=== PATIENT | female | born 1960 | race Caucasian/White ===

== ENCOUNTER 2016-07-12 06:08 | Inpatient (IN) | payer BC ==
[~2016-07-12 06:08] MED LIST: Buffered Lidocaine 1% SYRIN* 3 ML/SYR SYRINGE INTRADERM ONE; Dexamethasone IV* 4 MG/ML 1 ML (4 MG) ONE; Heparin VIAL(*) 5000 UNITS/ML VIAL (FIVE THOUSAND) ONE; Ondansetron INJ* 2 MG/ML VIAL ONE
[2016-07-12] MEDS ORDERED: Ketorolac INJ* 30 MG/ML 1 ML VIAL ONE (06:09)
[2016-07-12] MEDS ORDERED: ceFAZolin 2 GM PREMIX(*) 2 GM/50 ML BAG IVPB ONE ×2 (06:09→12:42)
[2016-07-12] MEDS ORDERED: Scopolamine 1.5 mg* PATCH ONE (06:09)
[2016-07-12] MEDS ORDERED: Bacitracin IV* 50,000 UNITS INJ ONE ×3 (07:27→10:22)
[2016-07-12] MEDS ORDERED: Methylene Blue 1%* 10 ML VIAL ONE (07:27)
[2016-07-12] MEDS ORDERED: Midazolam* 1 MG/ML 5 ML VIAL (5 MG) ONE (07:27)
[2016-07-12] MEDS ORDERED: Bupivacaine 0.5% W/EPI SDV* 30 ML VIAL ONE (07:27)
[2016-07-12] MEDS ORDERED: fentaNYL* 50 MCG/ML 2 ML VIAL (100 MCG VIAL) ONE (07:27)
[2016-07-12] MEDS ORDERED: Gentamicin ADULT (*) 40 MG/ML VIAL ONE ×3 (07:27→10:21)
[2016-07-12] MEDS ORDERED: ceFOXitin(*) 1 GM VIAL ONE (07:27)
[2016-07-12] MEDS ORDERED: Rocuronium* 10 MG/ML VIAL ONE (08:06)
[2016-07-12] MEDS ORDERED: ceFAZolin VIAL(*) 1 GM VIAL ONE ×2 (08:49→10:22)
[2016-07-12] MEDS ORDERED: HYDROmorphone* 1 MG/ML 1 ML SYR ONE (08:52)
[2016-07-12] MEDS ORDERED: Propofol* 10 MG/ML 20 ML BTL IV PUSH ONE (08:54)
[2016-07-12] MEDS ORDERED: Famotidine IV* 10 MG/ML 2 ML (20 mg) ONE (08:54)
[2016-07-12] MEDS ORDERED: Dexmedetomidine* 200 MCG/2 ML 2 ML VIAL ONE (08:54)
[2016-07-12] MEDS ORDERED: Lidocaine 2% PF* 5 ML VIAL ONE (08:54)
[2016-07-12] MEDS ORDERED: Hetastarch in NS* 500 ML IV ONE (09:29)
[2016-07-12] MEDS ORDERED: Acetaminophen TAB* 325 MG PO PRN ×2 (10:01→15:07)
[2016-07-12] MEDS ORDERED: Ondansetron INJ* 2 MG/ML VIAL IV PRN (10:01)
[2016-07-12] MEDS ORDERED: fentaNYL* 50 MCG/ML 2 ML VIAL (100 MCG VIAL) IV PRN (10:01)
[2016-07-12] MEDS ORDERED: HYDROmorphone* 1 MG/ML 1 ML SYR IV PRN (10:01)
[2016-07-12] MEDS ORDERED: HYDROcodone/ACETAMIN 5-325 MG* 1 TAB PO PRN (10:01)
[2016-07-12] MEDS ORDERED: DiMENhydriNATE IV* 50 MG/ML VIAL IV PUSH PRN (10:01)
[2016-07-12] MEDS ORDERED: PROCHLORPERAZINE INJ 5 MG/ML 2 ML VIAL IV PRN (10:01)
[2016-07-12] MEDS ORDERED: Desflurane* 240 ML INH ONE (12:38)
[2016-07-12] MEDS ORDERED: diPHENhydraMINE IV* 50 MG/ML 1 ml VIAL (BENADRYL) IV PRN ×2 (15:07)
[2016-07-12] MEDS ORDERED: diPHENhydraMINE PO* 25 MG PO PRN ×2 (15:08→15:09)
[2016-07-12] MEDS ORDERED: Magnesium Hydroxide LIQ* 30 ML UDC PO PRN (15:10)
[2016-07-12] MEDS ORDERED: Al Hydrox/Mg Hydrox/Simet LIQ* 30 ML UDC PO PRN (15:10)
[2016-07-12] MEDS: NS 0.9% 1000 ML* 1,000 ML IV SCH (15:14)
[2016-07-12] MEDS: HYDROcodone/ACETAMIN 5-325 MG* 1 TAB PO PRN (15:20)
[2016-07-12] MEDS: Heparin VIAL(*) 5000 UNITS/ML VIAL (FIVE THOUSAND) SUBCUT SCH ×2 (15:21→22:18)
[2016-07-12] MEDS: Acetaminophen TAB* 325 MG PO SCH ×2 (16:48→22:07)
[2016-07-12] MEDS: HYDROmorphone* 1 MG/ML 1 ML SYR IV PRN ×3 (16:51→22:12)
[2016-07-12] MEDS: Ondansetron INJ* 2 MG/ML VIAL IV PRN ×2 (17:52→22:11)
[2016-07-12] MEDS: ceFAZolin 2 GM PREMIX(*) 2 GM/50 ML BAG IVPB SCH (18:36)
[2016-07-12] MEDS: Omeprazole CAP* 20 MG PO SCH (22:06)
[2016-07-12] MEDS: Atorvastatin* 10 MG TAB PO SCH (22:08)
[2016-07-12] MEDS: ALPRAZolam TAB* 0.25 MG PO SCH (22:08)
[2016-07-12] MEDS: Potassium Chlor TAB* 20 MEQ TAB.ER PO SCH (22:08)
[2016-07-13] MEDS: ceFAZolin 2 GM PREMIX(*) 2 GM/50 ML BAG IVPB SCH (00:14)
--- NOTE | 2016-07-13 01:11 | OP ---
DATE OF OPERATION: 07/12/16 - ROOM #343 DATE OF : 64 SURGEON: Jean Sherwood MD BLOCK[employer] FORMS: Jenniffer Berg NP ANESTHESIOLOGIST: Dr. Dey. ANESTHESIA: General anesthetic. PRE-OP DIAGNOSIS: Right breast cancer. POST-OP DIAGNOSIS: Right breast cancer. OPERATIVE PROCEDURE: Right mastectomy with axillary lymph node dissection and left prophylactic mastectomy and removal of PowerPort. DESCRIPTION OF PROCEDURE: The patient was supine on the operative table. After adequate general anesthetic, compression stockings, Jamar Hugger warmer, and intravenous antibiotics, both chests were prepped with antiseptic, draped in a sterile fashion. Dr. Perez had previously marked the operative incisions. These were accomplished without difficulty. The right side was addressed first and elliptical incision was created. Inferior and superior flaps were created. The breast was removed in the usual fashion in the subfascial plane and the axillary tail was marked with a suture and this was then sent in formalin for pathologic evaluation. Axillary dissection was carried out in the usual fashion. Long thoracic and thoracodorsal nerves were identified and kept out of harm's way as was the axillary vein and tissue was sent in formalin for pathologic evaluation. Clips or cautery were used as appropriate for hemostasis. After adequate hemostasis, everything was irrigated , hemostasis was again confirmed. Moist gauze was placed and Dr. Perez will take over for the closure and will dictate that part of the procedure. Attention was then turned to the left side where again an elliptical incision was created upon Dr. Perez's luna. Inferior and superior flaps were created without difficulty, and the breast removed off the pectoralis fascia and marked with a suture laterally and sent in formalin for pathologic evaluation. The port was also removed from underneath. The site was hemostatic. Irrigation was carried out and was packed with saline gauze, and again Dr. Perez will take over this part of the case and accomplish the reconstruction and closure. Estimated blood loss from my part of the procedure was less than 100 mL. The specimens were as enumerated above. CC: Dr. Jean Sherwood; Dr. Racheal Monroe; Dr. Travon Toure; Dr. Emely Garnett; Dr. Jean Perez* [id number]/[facility] #: [id number] [facility]
[2016-07-13] MEDS: Acetaminophen TAB* 325 MG PO SCH ×4 (04:07→21:43)
[2016-07-13] MEDS: HYDROcodone/ACETAMIN 5-325 MG* 1 TAB PO PRN ×5 (04:08→21:42)
[2016-07-13] MEDS: Heparin VIAL(*) 5000 UNITS/ML VIAL (FIVE THOUSAND) SUBCUT SCH ×3 (05:20→21:43)
[2016-07-13] MEDS: Levothyroxine TAB* 50 MCG TAB PO SCH (05:20)
[2016-07-13] MEDS: NS 0.9% 1000 ML* 1,000 ML IV SCH (05:23)
[2016-07-13] MEDS: HYDROmorphone* 1 MG/ML 1 ML SYR IV PRN (05:33)
[2016-07-13] MEDS: Ondansetron INJ* 2 MG/ML VIAL IV PRN (05:34)
[2016-07-13] MEDS: Cyanocobalamin TAB* 500 MCG PO SCH (08:38)
[2016-07-13] MEDS: Lisinopril TAB* 5 MG PO SCH (08:38)
[2016-07-13] MEDS: Cholecalciferol TAB* 1000 UNITS PO SCH (08:38)
[2016-07-13] MEDS: ALPRAZolam TAB* 0.25 MG PO SCH ×2 (08:38→21:41)
[2016-07-13] MEDS: Ascorbic Acid TAB* 500 MG PO SCH (08:39)
[2016-07-13] MEDS: Hydrochlorothiazide TAB* 25 MG PO SCH (08:39)
[2016-07-13] MEDS: Metoprolol Tartrate TAB* 25 MG PO SCH (08:39)
[2016-07-13] MEDS: Ezetimibe TAB* 10 MG PO SCH (08:39)
[2016-07-13] MEDS: Multivitamins/Minerals TAB PO SCH (08:40)
[2016-07-13] MEDS: Potassium Chlor TAB* 20 MEQ TAB.ER PO SCH ×2 (08:41→21:39)
[2016-07-13] MEDS: IRON PO SCH (08:42)
[2016-07-13] MEDS ORDERED: Ibuprofen TAB* 600 MG PO PRN (15:32)
[2016-07-13] MEDS: Omeprazole CAP* 20 MG PO SCH (21:39)
[2016-07-13] MEDS: Atorvastatin* 10 MG TAB PO SCH (21:40)
[2016-07-14] MEDS: Acetaminophen TAB* 325 MG PO SCH ×2 (04:00→08:53)
[2016-07-14] MEDS: HYDROcodone/ACETAMIN 5-325 MG* 1 TAB PO PRN ×2 (04:02→08:47)
[2016-07-14] MEDS: Levothyroxine TAB* 50 MCG TAB PO SCH (06:05)
[2016-07-14] MEDS: Heparin VIAL(*) 5000 UNITS/ML VIAL (FIVE THOUSAND) SUBCUT SCH (06:05)
[2016-07-14 07:48] VITALS: BP 126/73
[2016-07-14] MEDS: Hydrochlorothiazide TAB* 25 MG PO SCH (08:46)
[2016-07-14] MEDS: Cyanocobalamin TAB* 500 MCG PO SCH (08:46)
[2016-07-14] MEDS: Ascorbic Acid TAB* 500 MG PO SCH (08:46)
[2016-07-14] MEDS: Lisinopril TAB* 5 MG PO SCH (08:46)
[2016-07-14] MEDS: Ezetimibe TAB* 10 MG PO SCH (08:47)
[2016-07-14] MEDS: Cholecalciferol TAB* 1000 UNITS PO SCH (08:47)
[2016-07-14] MEDS: Potassium Chlor TAB* 20 MEQ TAB.ER PO SCH (08:48)
[2016-07-14] MEDS: ALPRAZolam TAB* 0.25 MG PO SCH (08:48)
[2016-07-14] MEDS: Multivitamins/Minerals TAB PO SCH (08:48)
[2016-07-14] MEDS: Metoprolol Tartrate TAB* 25 MG PO SCH (08:48)
[2016-07-14] MEDS: IRON PO SCH (08:49)
--- NOTE | 2016-07-15 01:49 | DS ---
DISCHARGE SUMMARY: DATE OF ADMISSION: 07/12/16 DATE OF DISCHARGE: 07/14/16 PRINCIPAL DIAGNOSIS: Right breast carcinoma. PROCEDURES: Bilateral mastectomy and right axillary dissection, removal of PowerPort, and immediate reconstruction of bilateral breasts with tissue expanders and acellular dermal matrix on 07/12/16. HOSPITAL COURSE: The patient is a 56-year-old woman, who noted swelling in the right axilla around December 2015. Fine needle aspiration showed malignant ductal adenocarcinoma. Mammogram and ultrasound confirmed extensive right axillary adenopathy and mass. Right breast ultrasound-guided needle biopsy showed high- grade invasive ductal carcinoma. She underwent neoadjuvant chemotherapy from January 2016 to April 2016 with good response. She was admitted to the hospital and taken to the operating room on 07/12/16, where she underwent bilateral mastectomy, right axillary dissection, and removal of PowerPort by Dr. Sherwood. I then proceeded with bilateral immediate breast reconstruction using tissue expanders and acellular dermal matrix slings. Surgery went well and she had an uncomplicated postoperative course in the hospital. She did have significant postoperative pain, however, and was not able to go home the next day, but by 07/14/16, her pain was under satisfactory control and was feeling much better. She was discharged home. Breasts were noted to be healing well with no signs of infection, hematoma, seroma, or delayed healing. She was discharged home with [address] in [address]. She was given instructions including activity level, wound care, medication, and followup with arrangements made for followup in my office in 2 days. CC: Dr. Perez; Dr. Sherwood; Dr. Monroe; Dr. Toure; Dr. Garentt * [id number]/[facility] #: [id number] [facility]
== END 2016-07-14 11:10 | disposition home or self-care (01) | DRG 362 ==
LOC: OR 06:08 → OBSVTOIN 14:38 → SSU 14:38
PROVIDERS: ADMIT Surgery; ATTEND Surgery
PROC: 0JPT0XZ Removal of Tunneled Vascular Access Device from Trunk Subcutaneous Tissue and Fascia, Open Approach (ICD-10-PCS; 2016-07-12)
PROC: 0HHV0NZ Insertion of Tissue Expander into Bilateral Breast, Open Approach (ICD-10-PCS; 2016-07-12)
PROC: 0HTV0ZZ Resection of Bilateral Breast, Open Approach (ICD-10-PCS; principal; 2016-07-12 07:45)
PROC: 07B50ZZ Excision of Right Axillary Lymphatic, Open Approach (ICD-10-PCS; 2016-07-12 07:45)
DX: C50.211 Malignant neoplasm of upper-inner quadrant of right female breast (principal); C77.3 Secondary and unspecified malignant neoplasm of axilla and upper limb lymph nodes; E66.9 Obesity, unspecified; F41.9 Anxiety disorder, unspecified; F32.9 Major depressive disorder, single episode, unspecified; G89.18 Other acute postprocedural pain; I10 Essential (primary) hypertension; Z40.01 Encounter for prophylactic removal of breast; Z92.21 Personal history of antineoplastic chemotherapy; Z17.1 Estrogen receptor negative status [ER-]; Z88.8 Allergy status to other drugs, medicaments and biological substances; Z82.49 Family history of ischemic heart disease and other diseases of the circulatory system; Z80.1 Family history of malignant neoplasm of trachea, bronchus and lung; Z82.3 Family history of stroke; Z68.35 Body mass index [BMI] 35.0-35.9, adult
CPT/HCPCS: 88307; 88341; 88342; 94760; A9270-GY; C1789; J0690; J0694; J1100; J1170; J1580; J1644; J1885; J2250; J2405; J2704; J3010; Q4128

== ENCOUNTER 2016-08-08 10:04 | Inpatient (IN) | payer BC ==
[2016-08-08] MEDS ORDERED: Acetaminophen TAB* 325 MG PO PRN (10:31)
[2016-08-08] MEDS ORDERED: diPHENhydraMINE PO* 25 MG PO PRN (10:31)
[2016-08-08] MEDS ORDERED: Magnesium Hydroxide LIQ* 30 ML UDC PO PRN (10:33)
[2016-08-08] MEDS ORDERED: Al Hydrox/Mg Hydrox/Simet LIQ* 30 ML UDC PO PRN (10:33)
[2016-08-08 11:14] LABS: Hematocrit 34 % (35-47); Hemoglobin 10.9 g/dl (12.0-16.0); Mean Corpuscular HGB Conc 32 g/dl (31-36); Mean Corpuscular Hemoglobin 27 pg (27-31); Mean Corpuscular Volume 83 fL (80-97); Mean Platelet Volume 6 um3 (7.4-10.4); Red Blood Count 4.03 10^6/ul (4.0-5.4); Red Cell Distribution Width 15 % (10.5-15); White Blood Count 8.7 10^3/ul (3.5-10.8)
--- NOTE | 2016-08-08 11:23 | PN ---
Progress Note - Progress Note SOAP: Subjective: DOS: 08/08/16 CC: Left chest wall cellulitis HPI: 56 yo woman with left breast cancer s/p bilateral mastectomy and reconstruction with tissue expanders, last week had left lateral incision erythema and fever. US showed collection which was aspirated, no growth. Improved on adriana/rifampin/cipro. Last night return of fever and medial incision erythema. Had diarrhea which is resolved. No rash or fever today. Objective: []VSS, afebrile Gen:no distress Neuro:AAOX3 HEENT:PERRL, MMM Neck:Supple Heart:RRR no murmur Lungs:CTA BL Abd:+BS NTND soft Skin: Left chest incision intact, medial incision induraiton and irregular patch of erythema, non tender Laboratory Results - last 24 hr 08/08/16 11:04 WBC 8.7 RBC 4.03 Hgb 10.9 L Hct 34 L MCV 83 MCH 27 MCHC 32 RDW 15 Plt Count 380 MPV 6 L Assessment: 1. Left chest wall cellulitis and abscess ?program engineer infection 2. fever due to #1 3. breast cancer s/p BL mastectomy, reconstruction, and chemotherapy Plan: 1. vancomycin goal tr 10-15 (orderd), US to evaluate fluid collection and aspirate if present. Discussed with Dr Perez.
[2016-08-08] MEDS ORDERED: Vancomycin per Pharmacy* NOTE FOLLOW UP PRN (11:28)
[2016-08-08] MEDS ORDERED: Vancomycin(*) 1,500 MG in NS 0.9% 250 ML* 250 ML IVPB ONE (12:00)
[2016-08-08 12:54] LABS: Erythrocyte Sed Rate 61 mm/Hr (0-30)
--- NOTE | 2016-08-08 13:09 | RAD ---
CPT II Codes: 6100F INDICATION: Pain and erythema surrounding a left breast tissue manager baby COMPARISON: Sonographic images from prior left breast aspiration The benefits and risks of procedure explained to the patient and the patient signed informed consent. Multiple images of the left medial breast were obtained. The fluid collection in question was identified and specifically differentiated from the adjacent left breast tissue manager baby. A percutaneous tract was determined. A time out was performed before beginning the procedure. The patient was prepped and draped in the usual sterile fashion. The skin and tissue overlying the fluid collection were anesthetized with 1% lidocaine. Percutaneously, a specimen was obtained with a 20 gauge needle. Approximately 45 mL of blood-tinged serous fluid was aspirated and sent to the laboratory. The needle was removed and the specimen was labeled and packaged and sent to the laboratory. The post procedure ultrasound demonstrates no evidence for hematoma. The patient tolerated procedure well without incident. IMPRESSION: Uncomplicated ultrasound-guided needle aspiration of approximately 45 mL of blood-tinged serous fluid adjacent to the medial margin of a left breast tissue manager baby.
[2016-08-08] MEDS: Heparin VIAL(*) 5000 UNITS/ML VIAL (FIVE THOUSAND) SUBCUT SCH ×2 (14:38→22:15)
[2016-08-08] MEDS: Atorvastatin* 10 MG TAB PO SCH (18:08)
[2016-08-08] MEDS: Potassium Chlor TAB* 20 MEQ TAB.ER PO SCH (21:21)
[2016-08-08] MEDS: ALPRAZolam TAB* 0.25 MG PO SCH (21:21)
--- NOTE | 2016-08-08 21:40 | HP ---
HISTORY AND PHYSICAL: DATE OF ADMISSION: 08/08/16 CHIEF COMPLAINT: Infection, left breast reconstruction. HISTORY OF PRESENT ILLNESS: The patient is a 56-year-old female who was diagnosed with invasive ductal carcinoma of the right breast in December 2015. The carcinoma was metastatic to right axillary lymph nodes. She underwent neoadjuvant chemotherapy to which she responded well. She underwent right mastectomy and axillary dissection as well as left prophylactic mastectomy with Dr. Sherwood on 07/12/16. I performed immediate bilateral breast reconstruction with tissue expanders and acellular dermal matrix slings at that time. The patient initially had an uncomplicated postoperative course, but on 08/01/16, she developed the acute onset of fever to 103.7. She was noted to have localized redness and induration in the lateral aspect of the left breast reconstruction. Ultrasound was unable to be performed that night. She was started on p.o. minocycline, rifampin, and Cipro on 08/02/16. She underwent ultrasound-guided aspiration and culture of the left breast on 08/03/16. There has been no growth so far on the cultures. She rapidly defervesced on the oral antibiotics. The erythema and induration in the lateral aspect of the left breast resolved as well. She saw Dr. Chaidez yesterday for Infectious Disease consultation and he recommended stopping the Cipro, but continued her on oral minocycline and rifampin for several weeks. Unfortunately, she developed fever again last night up to 101 associated with malaise and localized erythema and swelling in the medial aspect of the left breast reconstruction. She is admitted to the hospital now for intravenous antibiotics and repeat ultrasound and possible aspiration. If the infection does not resolve, she may require removal of the left breast tissue seo intern. PAST MEDICAL HISTORY: Significant for hypertension. PAST SURGICAL HISTORY: Previous surgeries include , bilateral tubal ligation, hysterectomy, PowerPort implantation, subsequent removal, bilateral mastectomy, right axillary dissection, bilateral immediate reconstruction with tissue seo intern and acellular dermal matrix slings as noted above. MEDICATIONS: 1. Alprazolam 0.25 mg twice a day. 2. Vitamin D 2000 units 2 p.o. daily. 3. Hydrochlorothiazide 25 mg p.o. daily. 4. Zetia 10 mg p.o. daily. 5. Levothyroxine 50 mcg p.o. daily. 6. Lisinopril 2.5 mg p.o. daily. 7. Vitamin B12 1000 mcg p.o. every other day. 8. Simvastatin 10 mg p.o. daily. 9. Metoprolol ER 25 mg p.o. daily. 10. Omeprazole 20 mg p.o. daily. 11. Potassium chloride ER 20 mEq p.o. b.i.d. ALLERGIES: She is allergic to METHYLPREDNISOLONE. FAMILY HISTORY: Father had a heart attack and stroke. She denies any family history of breast cancer or skin cancer. SOCIAL HISTORY: Ms. Amado is . She works for [employer]. She does not smoke. REVIEW OF SYSTEMS: The patient denies any history of unusual chest pain or shortness of breath. She denies any history of easy bruising or other bleeding problems. She denies any history of heart disease, lung disease, liver disease , or kidney disease. PHYSICAL EXAMINATION GENERAL: The patient is noted to be alert, cooperative in no acute distress. VITAL SIGNS: Temperature is 99.5, blood pressure 145/72, heart rate 67, respiratory rate 22. LUNGS: Clear to auscultation. HEART: Regular rate and rhythm. BREASTS: Examination of the left breast reconstruction reveals 10 x 8 cm area of erythema, induration, and skin edema in the medial aspect of the left breast reconstruction. No fluctuance or purulence is noted. The wound is intact. The right breast reconstruction appears to be healing satisfactorily with no signs of infection, hematoma, seroma or delayed healing. IMPRESSION: Infection of the left breast tissue seo intern reconstruction. PLAN: Admission for intravenous antibiotics. Dr. Chaidez is being consulted for recommendations on antibiotic regimen. A repeat ultrasound of left breast has been ordered and if a significant fluid collection is seen, aspiration is requested and fluid will be sent for repeat Gram stain and bacterial, fungal, and AFB cultures and stains. If the infection does not resolve, she may require removal of a tissue seo intern. CC: Dr. Garnett; Dr. Sherwood; Dr. Monroe; Dr. Toure* [id number]/[facility] #: [id number] [facility]
[2016-08-08] MEDS: Vancomycin(*) 1,000 MG in NS 0.9% 250 ML* 250 ML IVPB SCH (22:27)
[2016-08-08] MEDS: Ibuprofen TAB* 400 MG PO PRN (22:34)
[2016-08-09] MEDS: Heparin VIAL(*) 5000 UNITS/ML VIAL (FIVE THOUSAND) SUBCUT SCH ×3 (06:18→21:11)
[2016-08-09] MEDS: Levothyroxine TAB* 50 MCG TAB PO SCH (06:18)
[2016-08-09] MEDS: Vancomycin(*) 1,000 MG in NS 0.9% 250 ML* 250 ML IVPB SCH ×2 (06:20→14:24)
[2016-08-09] MEDS: Omeprazole CAP* 20 MG PO SCH (07:38)
[2016-08-09] MEDS: Cholecalciferol TAB* 1000 UNITS PO SCH (09:30)
[2016-08-09] MEDS: Lisinopril TAB* 5 MG PO SCH (09:30)
[2016-08-09] MEDS: Ezetimibe TAB* 10 MG PO SCH (09:30)
[2016-08-09] MEDS: Cyanocobalamin TAB* 500 MCG PO SCH (09:30)
[2016-08-09] MEDS: ALPRAZolam TAB* 0.25 MG PO SCH ×2 (09:30→21:10)
[2016-08-09] MEDS: Potassium Chlor TAB* 20 MEQ TAB.ER PO SCH ×2 (09:31→21:10)
[2016-08-09] MEDS: Hydrochlorothiazide TAB* 25 MG PO SCH (09:31)
[2016-08-09] MEDS: Metoprolol Succinate XL TAB* 25 MG PO SCH (09:31)
[2016-08-09] MEDS: Docusate CAP* 100 MG PO SCH (09:32)
[2016-08-09] MEDS ORDERED: Vancomycin Trough Check NOTE FOLLOW UP ONE (14:30)
[2016-08-09] MEDS: Atorvastatin* 10 MG TAB PO SCH (17:45)
[2016-08-09] MEDS: Ibuprofen TAB* 400 MG PO PRN (21:16)
[2016-08-09] MEDS: Vancomycin(*) 750 MG in NS 0.9% 250 ML* 250 ML IVPB SCH (22:22)
[2016-08-10] MEDS: Heparin VIAL(*) 5000 UNITS/ML VIAL (FIVE THOUSAND) SUBCUT SCH ×3 (06:11→22:06)
[2016-08-10] MEDS: Levothyroxine TAB* 50 MCG TAB PO SCH (06:11)
[2016-08-10] MEDS: Vancomycin(*) 750 MG in NS 0.9% 250 ML* 250 ML IVPB SCH (06:12)
[2016-08-10 07:10] LABS: Hematocrit 32 % (35-47); Hemoglobin 10.5 g/dl (12.0-16.0); Mean Corpuscular HGB Conc 33 g/dl (31-36); Mean Corpuscular Hemoglobin 27 pg (27-31); Mean Corpuscular Volume 82 fL (80-97); Mean Platelet Volume 6 um3 (7.4-10.4); Red Blood Count 3.88 10^6/ul (4.0-5.4); Red Cell Distribution Width 16 % (10.5-15); White Blood Count 6.4 10^3/ul (3.5-10.8)
[2016-08-10] MEDS: Lisinopril TAB* 5 MG PO SCH (07:44)
[2016-08-10] MEDS: Hydrochlorothiazide TAB* 25 MG PO SCH (07:44)
[2016-08-10] MEDS: Cholecalciferol TAB* 1000 UNITS PO SCH (07:44)
[2016-08-10] MEDS: Docusate CAP* 100 MG PO SCH (07:45)
[2016-08-10] MEDS: Metoprolol Succinate XL TAB* 25 MG PO SCH (07:45)
[2016-08-10] MEDS: ALPRAZolam TAB* 0.25 MG PO SCH ×2 (07:45→22:05)
[2016-08-10] MEDS: Ezetimibe TAB* 10 MG PO SCH (07:45)
[2016-08-10] MEDS: Potassium Chlor TAB* 20 MEQ TAB.ER PO SCH ×2 (07:45→22:04)
[2016-08-10] MEDS: Omeprazole CAP* 20 MG PO SCH (07:45)
[2016-08-10 08:59] LABS: Erythrocyte Sed Rate 50 mm/Hr (0-30)
[2016-08-10] MEDS: Linezolid TAB* 600 MG PO SCH (13:14)
[2016-08-10] MEDS: Atorvastatin* 10 MG TAB PO SCH (18:05)
[2016-08-10] MEDS: Ibuprofen TAB* 400 MG PO PRN (22:04)
[2016-08-11] MEDS: Linezolid TAB* 600 MG PO SCH (00:04)
[2016-08-11] MEDS ORDERED: Vancomycin Trough Check NOTE FOLLOW UP ONE (05:30)
[2016-08-11] MEDS: Heparin VIAL(*) 5000 UNITS/ML VIAL (FIVE THOUSAND) SUBCUT SCH (07:06)
[2016-08-11] MEDS: Levothyroxine TAB* 50 MCG TAB PO SCH (07:08)
[2016-08-11] MEDS: Omeprazole CAP* 20 MG PO SCH (07:23)
[2016-08-11 08:45] VITALS: BP 121/78
[2016-08-11] MEDS: Cholecalciferol TAB* 1000 UNITS PO SCH (08:50)
[2016-08-11] MEDS: Metoprolol Succinate XL TAB* 25 MG PO SCH (08:50)
[2016-08-11] MEDS: Hydrochlorothiazide TAB* 25 MG PO SCH (08:50)
[2016-08-11] MEDS: Cyanocobalamin TAB* 500 MCG PO SCH (08:51)
[2016-08-11] MEDS: Potassium Chlor TAB* 20 MEQ TAB.ER PO SCH (08:51)
[2016-08-11] MEDS: Ezetimibe TAB* 10 MG PO SCH (08:51)
[2016-08-11] MEDS: Lisinopril TAB* 5 MG PO SCH (08:51)
[2016-08-11] MEDS: ALPRAZolam TAB* 0.25 MG PO SCH (08:51)
[2016-08-11] MEDS: Docusate CAP* 100 MG PO SCH (08:58)
--- NOTE | 2016-08-11 22:55 | DS ---
DISCHARGE SUMMARY: DATE OF ADMISSION: 08/08/16 DATE OF DISCHARGE: 08/11/16 PRINCIPAL DIAGNOSIS: Infection, left breast reconstruction. SUMMARY: The patient is a 56-year-old female who was diagnosed with invasive ductal carcinoma of the right breast in December 2015. The carcinoma was metastatic to right axillary lymph nodes. She underwent neoadjuvant chemotherapy to which she responded well. She underwent right mastectomy and axillary dissection, as well as a left prophylactic mastectomy with Dr. Sherwood on 07/12/16. I performed immediate bilateral reconstruction with tissue expanders and acellular dermal matrix slings at that time. The patient initially had an uncomplicated postoperative course but on 08/01/16, she developed the acute onset of fever to 103.7. She was noted to have localized redness and induration in the lateral aspect of the left breast reconstruction. Ultrasound was unable to be performed that night. She was started on p.o. minocycline, rifampin and Cipro on 08/02/16. She underwent ultrasound-guided aspiration and culture of the left breast on 08/03/16. Gram stain showed 4+ neutrophils and 1+ gram-positive cocci. Cultures were no growth. She rapidly defervesced on oral antibiotics. The erythema and induration in the lateral aspect of the left breast resolved as well. Unfortunately, however, she developed recurrent fever up to 101 on 08/07/16, associated with malaise and localized erythema and swelling in the medial aspect of the left breast reconstruction. She was admitted to the hospital on 08/08/16 and started on intravenous vancomycin. Repeat ultrasound and aspiration was performed and 65 cc of serosanguineous fluid was aspirated. Gram stain showed 4+ neutrophils. No organisms seen. Cultures have been no growth so far. She improved clinically on intravenous vancomycin. She has been afebrile since admission. White count has normalized. C-reactive protein and ESR are both decreasing. The erythema and swelling in the medial aspect of the left breast reconstruction is markedly improved. She lost IV access and PICC line was unable to be inserted. She was switched to p.o. linezolid and has remained afebrile. We have been waiting insurance approval for an outpatient course of p.o. linezolid, but nothing is able to achieved with this over the weekend. Therefore, the patient is being discharged home with the hospital supplying a 5 - day course of p.o. linezolid and we will still await insurance approval for completion of the outpatient oral course of linezolid. The patient was given instructions including activity level, wound care, medication and followup. I will see her in my office for followup in 6 days. She will also follow up with Dr. Chaidez of Infectious Disease. CC: Jean Perez MD; Dr. Chaidez; Dr. Sherwood; Dr. Toure; Dr. Monroe; Dr. Garnett* [id number]/[facility] #: [id number] [facility]
== END 2016-08-11 10:05 | disposition home or self-care (01) | DRG 721 ==
LOC: SSU 10:07
PROVIDERS: ADMIT Plastic Surgery; ATTEND Plastic Surgery
DX: T85.79XA Infection and inflammatory reaction due to other internal prosthetic devices, implants and grafts, initial encounter (principal); C50.911 Malignant neoplasm of unspecified site of right female breast; I10 Essential (primary) hypertension; Y84.8 Other medical procedures as the cause of abnormal reaction of the patient, or of later complication, without mention of misadventure at the time of the procedure; Y92.9 Unspecified place or not applicable; Z90.13 Acquired absence of bilateral breasts and nipples; Z79.899 Other long term (current) drug therapy; Z88.8 Allergy status to other drugs, medicaments and biological substances; Z82.3 Family history of stroke; Z82.49 Family history of ischemic heart disease and other diseases of the circulatory system
CPT/HCPCS: 10022; 36415; 76942; 80202; 85025; 85027; 85652; 86140; 87040; 87102; 87116; 87205; 87206; A9270-GY; C1751; J1644; J3370

== ENCOUNTER 2016-12-13 06:39 | Day surgery (SDC) | payer BC ==
[~2016-12-13 06:39] MED LIST changes: +Buffered Lidocaine 0.9% SYRIN* 5 ML/SYR SYRINGE INTRADERM ONE; -Buffered Lidocaine 1% SYRIN* 3 ML/SYR SYRINGE INTRADERM ONE; -Dexamethasone IV* 4 MG/ML 1 ML (4 MG) ONE; -Heparin VIAL(*) 5000 UNITS/ML VIAL (FIVE THOUSAND) ONE; -Ondansetron INJ* 2 MG/ML VIAL ONE
[2016-12-13] MEDS ORDERED: Ondansetron INJ* 2 MG/ML VIAL ONE (06:52)
[2016-12-13] MEDS ORDERED: Dexamethasone IV* 4 MG/ML 1 ML (4 MG) ONE (06:52)
[2016-12-13] MEDS ORDERED: ceFAZolin 2 GM PREMIX (*) 50 ML IVPB ONE (06:52)
[2016-12-13] MEDS ORDERED: Heparin VIAL(*) 5000 UNITS/ML VIAL (FIVE THOUSAND) ONE (06:52)
[2016-12-13] MEDS ORDERED: Scopolamine 1.5 mg* PATCH ONE (06:52)
[2016-12-13] MEDS ORDERED: Buffered Lidocaine 0.9% SYRIN* 5 ML/SYR SYRINGE ONE (07:14)
[2016-12-13] MEDS ORDERED: ceFAZolin 1 GM VIAL(*) ONE (07:27)
[2016-12-13] MEDS ORDERED: Bacitracin IV* 50,000 UNITS INJ ONE (07:28)
[2016-12-13] MEDS ORDERED: Gentamicin ADULT (*) 40 MG/ML VIAL ONE (07:28)
[2016-12-13] MEDS ORDERED: fentaNYL* 50 MCG/ML 2 ML VIAL (100 MCG VIAL) ONE (07:50)
[2016-12-13] MEDS ORDERED: Propofol* 10 MG/ML 20 ML BTL IV PUSH ONE (07:57)
[2016-12-13] MEDS ORDERED: Lidocaine 2% PF * 5 ML VIAL ONE (07:57)
[2016-12-13] MEDS ORDERED: Ketorolac INJ* 30 MG/ML 1 ML VIAL IV PRN (08:23)
[2016-12-13] MEDS ORDERED: oxyCODONE TAB* 5 MG TAB PO PRN (08:23)
[2016-12-13] MEDS ORDERED: fentaNYL* 50 MCG/ML 2 ML VIAL (100 MCG VIAL) IV PRN (08:23)
[2016-12-13] MEDS ORDERED: DiMENhydriNATE IV* 50 MG/ML VIAL IV PUSH PRN (08:23)
[2016-12-13] MEDS ORDERED: Ketorolac INJ* 30 MG/ML 1 ML VIAL ONE (09:59)
[2016-12-13] MEDS ORDERED: HYDROcodone/ACETAMIN 5-325 MG* 1 TAB ONE (10:02)
[2016-12-13 10:35] VITALS: BP 136/71
== END 2016-12-13 10:45 | disposition home or self-care (01) ==
LOC: OREAST 06:39
PROVIDERS: ATTEND Plastic Surgery
DX: T85.49XA Other mechanical complication of breast prosthesis and implant, initial encounter (principal); C50.911 Malignant neoplasm of unspecified site of right female breast; I10 Essential (primary) hypertension; E03.9 Hypothyroidism, unspecified; Y83.1 Surgical operation with implant of artificial internal device as the cause of abnormal reaction of the patient, or of later complication, without mention of misadventure at the time of the procedure
CPT/HCPCS: 88305; A9270-GY; C1789; J0690; J1100; J1580; J1644; J1885; J2405; J2704; J3010

== ENCOUNTER 2017-10-31 06:37 | Day surgery (SDC) | payer BC ==
[2017-10-31] MEDS ORDERED: Ondansetron INJ* 2 MG/ML VIAL ONE (06:51)
[2017-10-31] MEDS ORDERED: Scopolamine 1.5 mg* PATCH ONE (06:51)
[2017-10-31] MEDS ORDERED: Heparin VIAL(*) 5000 UNITS/ML VIAL (FIVE THOUSAND) ONE (06:51)
[2017-10-31] MEDS ORDERED: ceFAZolin 2 GM PREMIX (*) 2 GM/50 ML BAG IVPB ONE (06:51)
[2017-10-31] MEDS ORDERED: Lidocaine 2% PF* 10 ML AMP ONE (07:17)
[2017-10-31] MEDS ORDERED: ceFAZolin 1 GM VIAL(*) ONE (07:17)
[2017-10-31] MEDS ORDERED: Gentamicin ADULT (*) 40 MG/ML VIAL ONE (07:17)
[2017-10-31] MEDS ORDERED: EPINEPHRINE 1 MG/ML 1 ML VIAL ONE (07:18)
[2017-10-31] MEDS ORDERED: Bacitracin IV* 50,000 UNITS INJ ONE (07:18)
[2017-10-31] MEDS ORDERED: fentaNYL* 50 MCG/ML 2 ML VIAL (100 MCG VIAL) ONE ×3 (07:30→11:18)
[2017-10-31] MEDS ORDERED: Lidocaine 2% PF * 5 ML VIAL ONE (08:10)
[2017-10-31] MEDS ORDERED: Propofol* 10 MG/ML 20 ML BTL IV PUSH ONE (08:10)
[2017-10-31] MEDS ORDERED: Naloxone* 0.4 MG/ML 1 ML VIAL IV PRN (08:17)
[2017-10-31] MEDS: fentaNYL* 50 MCG/ML 2 ML VIAL (100 MCG VIAL) IV PRN ×2 (11:19→11:32)
[2017-10-31] MEDS ORDERED: HYDROcodone/ACETAMIN 5-325 MG* 1 TAB ONE (11:55)
[2017-10-31] MEDS ORDERED: DiMENhydriNATE IV* 50 MG/ML VIAL ONE (12:12)
[2017-10-31 13:07] VITALS: BP 138/72
== END 2017-10-31 13:07 | disposition home or self-care (01) ==
LOC: OREAST 06:37
PROVIDERS: ATTEND Plastic Surgery
DX: Z42.1 Encounter for breast reconstruction following mastectomy (principal); Z85.3 Personal history of malignant neoplasm of breast; I10 Essential (primary) hypertension
CPT/HCPCS: A9270-GY; C1789; J0690; J1240; J1580; J1644; J2001; J2405; J2704; J3010; Q4128